=== PATIENT | female | born 1955 | race Caucasian/White ===

== ENCOUNTER 2016-06-18 13:24 | Emergency (ER) | payer BC ==
[2016-06-18] MEDS ORDERED: Diphtheria,Pertussis(Acell),Tetanus Vaccine 0.5 ML Syringe IM ONE (13:50)
--- NOTE | 2016-06-18 13:50 | EDM.PDOC ---
ED HPI Skin/Rash - General Chief Complaint: Skin Complaint Stated Complaint: CUT ON FINGER Time Seen by Provider: 06/18/16 13:27 Source: Reports: Patient, Family, RN, RN notes reviewed History Limitations: Reports: No limitations - History of Present Illness Timing: Reports: still present Location, Skin: Reports: upper extremity, left Severity: mild Known Identified Source: yes Place of Occurrence: home ED ROS GENERAL - Review of Systems Review Of Systems: See Below Constitutional: Denies: fever, chills, weakness Respiratory: Reports: No Symptoms. Denies: Shortness of Breath, Cough Cardiovascular: Reports: No symptoms. Denies: Chest pain, Palpitations Skin: Reports: wound Neurological: Reports: No Symptoms. Denies: Dizziness, Headache, Numbness, Paresthesia, Tingling ED EXAM, SKIN/RASH Exam: See Below Exam Limited By: No limitations General Appearance: alert, no apparent distress Respiratory/Chest: no respiratory distress, lungs clear, normal breath sounds Cardiovascular: regular rate, rhythm Neurological: alert, oriented Skin: Warm, Dry, Normal color, No rash, Wound/incision (3cm vertical laceration to dorsum of distal index finger left hand) Location, Skin: upper extremity, left Associated features: tenderness ED SKIN PROCEDURES - Laceration/Wound Repair Left Distal Finger Lac/wound length in cm: 3 Appearance: superficial, linear, clean Distal NVT: neuro & vascular intact, no tendon injury Skin prep: saline Exploration/Debridement/Repair: wound explored, in a bloodless field, explored to base, no foreign material found, wound margins revised Closed with: dermabond Sterile dressing applied: nurse Tetanus status addressed: Yes Complications: No Course - Orders/Labs/Meds Orders: Active Orders 24 hr Category Date Time Status Vaccines to be Administered [RC] PER UNIT ROUTINE Care 06/18/16 13:51 Active Meds: Medications Discontinued Medications Generic Name Dose Route Start Last Admin Trade Name Freq PRN Reason Stop Dose Admin Diphtheria/Tetanus/Acell Pertussis 0.5 ml 06/18/16 13:50 Adacel IM 06/18/16 13:51 .ONCE ONE Departure - Departure Time of Disposition: 13:49 Disposition: Home, Self-Care 01 Condition: good Clinical Impression: Finger laceration Qualifiers: Encounter type: initial encounter Qualified Code(s): S61.219A - Laceration without foreign body of unspecified finger without damage to nail, initial encounter Instructions: Laceration Care, Adult, Tissue Adhesive Wound Care Referrals: PCP,Not In Area [Primary Care Provider] - Forms: ED Department Discharge Additional Instructions: 1. Stay well hydrated and rest 2. Keep bandage on for at least 24 hours 3. Do not rub off glue, it will dissolve on its own 4. See your Primary as symptoms warrant - Problem List Review Problem List Initiated/Reviewed/Updated: Yes - My Orders Last 24 Hours: My Active Orders 06/18/16 13:51 Vaccines to be Administered [RC] PER UNIT ROUTINE - Assessment/Plan Last 24 Hours: My Active Orders 06/18/16 13:51 Vaccines to be Administered [RC] PER UNIT ROUTINE
[2016-06-18 14:29] VITALS: BP 144/66
== END 2016-06-18 14:18 | disposition home or self-care (01) ==
LOC: VM.ED 13:24
DX: S61.211A Laceration without foreign body of left index finger without damage to nail, initial encounter (principal); W45.8XXA Other foreign body or object entering through skin, initial encounter
CPT/HCPCS: 12002; 90715; 99283